=== PATIENT | male | born 1980 | race Caucasian/White ===

== ENCOUNTER 2023-12-26 11:02 | Day surgery (SDC) | payer OTHER ==
[~2023-12-26] VITALS: Ht 182.9 cm; Wt 79.6 kg
[~2023-12-26 11:02] MED LIST: HYDR1TAB94 PO; Ibuprofen600 MG PO; Lactated Ringer's 1,000 ML IV ONE; Ropivacaine 0.5% HCl/Pf 5 MG/ML 20ML VIAL ONE
[2023-12-26] MEDS ORDERED: NS 50 ML IV ONE (11:52)
[2023-12-26] MEDS ORDERED: CeFAZolin Sodium 2,000 MG VIAL ONE (11:52)
[2023-12-26] MEDS ORDERED: Lactated Ringer's 1,000 ML IV ONE (12:17)
[2023-12-26] MEDS ORDERED: FentaNYL Citrate 50 MCG/ML 2 ML Injection ONE (12:37)
[2023-12-26] MEDS ORDERED: Midazolam HCl 1MG / ML 2ML Vial ONE (12:37)
[2023-12-26] MEDS ORDERED: propofoL 20 ML IV ONE (12:37)
[2023-12-26] MEDS ORDERED: Ropivacaine 0.5% HCl/Pf 5 MG/ML 20ML VIAL ONE (13:20)
--- NOTE | 2023-12-26 13:43 | NUR ---
12/26/23 1343 Tarsha Sheffield TIMEOUT COMPLETED FOR NERVE BLOCK 1330 INJECTION FOR NERVE BLOCK 1335 MARYURI SERRA NERVE BLOCK COMPLETED BY MARYURI SERRA AT 1340
[2023-12-26] MEDS ORDERED: HYDROmorphone HCl/Pf 1MG SYR ONE (13:58)
[2023-12-26] MEDS ORDERED: EPINEPhrine HCl 1 MG/ML 1ML Amp XX ONE (14:26)
--- NOTE | 2023-12-26 14:26 | NUR ---
12/26/23 1426 Azalea Olivo 0.1ML OF EPI 1MG/ML ADDED TO 20ML ROPIVICAINE 0.5% TO CREATE A LOCAL SOLUTION OF ROPIVICAINE 0.5% W/EPI 1:200,000.
== END 2023-12-26 16:15 | disposition home or self-care (01) ==
LOC: ORSCSDS 11:02
PROVIDERS: Podiatrist Foot & Ankle Surgery
PROC: 0QSK04Z Reposition Left Fibula with Internal Fixation Device, Open Approach (ICD-10-PCS; principal; 2023-12-26 13:15)
DX: S82.62XA Displaced fracture of lateral malleolus of left fibula, initial encounter for closed fracture (principal); S93.432A Sprain of tibiofibular ligament of left ankle, initial encounter; V49.9XXA Car occupant (driver) (passenger) injured in unspecified traffic accident, initial encounter; F17.210 Nicotine dependence, cigarettes, uncomplicated
CPT/HCPCS: C1713; C1776; J0171; J0690; J1170; J2250; J2704; J2795; J3010; J7120